=== PATIENT | male | born 1990 | race African-American/Black ===

== ENCOUNTER 2022-04-26 09:45 | Emergency (ER) | payer MEDICAID ==
[~2022-04-26] VITALS: Ht 177.8 cm; Wt 78.0 kg
[2022-04-26] MEDS ORDERED: LORAZEPAM 1MG TABLET PO ONE (10:15)
[2022-04-26 12:47] VITALS: BP 108/65
== END 2022-04-26 13:30 | disposition home or self-care (01) ==
LOC: ER 09:59
DX: F15.90 Other stimulant use, unspecified, uncomplicated (principal)
CPT/HCPCS: 99283